=== PATIENT | female | born 1995 ===

== ENCOUNTER 2020-02-11 09:00 | Emergency (ER) | payer MEDICAID ==
[2020-02-11 10:02] LABS: Bilirubin,Urine NEG (Negative); Blood,Urine NEG (Negative); Color,Urine Yellow (Yellow); Mucus,Urine FEW /HPF; Protein,Urine <15 mg/dL mg/dL (Negative); Urobilinogen,Urine < 2.0 mg/dL (<2.0); WBC,Urine < 1.0 /HPF (0.0-6.0)
--- NOTE | 2020-02-11 10:34 | Emergency Department Report ---
ED Female HPI - General Chief complaint: Abdominal Pain Stated complaint: STOMACH PAIN Time Seen by Provider: 02/11/20 10:27 Source: patient Mode of arrival: Ambulatory Limitations: No Limitations - History of Present Illness Initial comments: Patient is a 24-year-old female who presents emergency room with complaints of pelvic pain and suprapubic abdominal pain that began a week ago. She denies any dysuria, vaginal discharge, itching, burning, nausea, vomiting, diarrhea, fever, vaginal bleeding. She denies any past medical history or allergies to medications. She states her last menstrual cycle was January 06. She states there is a possibility for . - Related Data Previous Rx's Medication Instructions Recorded Last Taken Type Fluconazole [Diflucan TAB] 200 mg PO QDAY #1 tablet 01/04/20 Unknown Rx Allergies Allergy/AdvReac Type Severity Reaction Status Date / Time No Known Allergies Allergy Unverified 01/04/20 08:49 ED Review of Systems ROS: Stated complaint: STOMACH PAIN Other details as noted in HPI Comment: All other systems reviewed and negative ED Past Medical Hx - Past Medical History Previous Medical History?: No - Surgical History Past Surgical History?: No - Social History Smoking Status: Never Smoker Substance Use Type: Alcohol - Medications Home Medications: Home Medications Medication Instructions Recorded Confirmed Last Taken Type Fluconazole [Diflucan TAB] 200 mg PO QDAY #1 tablet 01/04/20 Unknown Rx ED Physical Exam - General Limitations: No Limitations General appearance: alert, in no apparent distress - Head Head exam: Present: atraumatic, normocephalic - Eye Eye exam: Present: normal appearance - ENT ENT exam: Present: mucous membranes moist - Respiratory Respiratory exam: Present: normal lung sounds bilaterally. Absent: respiratory distress, wheezes, rales, rhonchi, stridor, chest wall tenderness, accessory muscle use, decreased breath sounds, prolonged expiratory - Cardiovascular Cardiovascular Exam: Present: regular rate, normal rhythm, normal heart sounds. Absent: systolic murmur, diastolic murmur, rubs, gallop - GI/Abdominal GI/Abdominal exam: Present: soft, normal bowel sounds. Absent: distended, tenderness, guarding, rebound, rigid - Neurological Exam Neurological exam: Present: alert, oriented X3 - Psychiatric Psychiatric exam: Present: normal affect, normal mood - Skin Skin exam: Present: warm, dry, intact ED Course Vital Signs 02/11/20 09:08 Temperature 98.1 F Pulse Rate 55 L Respiratory 16 Rate Blood Pressure 106/57 O2 Sat by Pulse 100 Oximetry ED Medical Decision Making - Lab Data Result diagrams: 02/11/20 10:49 02/11/20 10:49 Lab Results 02/11/20 02/11/20 02/11/20 Range/Units 09:19 10:49 10:49 WBC 6.6 (4.5-11.0) K/mm3 RBC 4.26 (3.65-5.03) M/mm3 Hgb 13.1 (10.1-14.3) gm/dl Hct 37.9 (30.3-42.9) % MCV 89 (79-97) fl MCH 31 (28-32) pg MCHC 35 H (30-34) % RDW 12.8 L (13.2-15.2) % Plt Count 203 (140-440) K/mm3 Lymph % (Auto) 20.3 (13.4-35.0) % Nolan % (Auto) 7.4 H (0.0-7.3) % Eos % (Auto) 0.4 (0.0-4.3) % Baso % (Auto) 0.6 (0.0-1.8) % Lymph # 1.3 (1.2-5.4) K/mm3 Nolan # 0.5 (0.0-0.8) K/mm3 Eos # 0.0 (0.0-0.4) K/mm3 Baso # 0.0 (0.0-0.1) K/mm3 Seg Neutrophils % 71.3 H (40.0-70.0) % Seg Neutrophils # 4.7 (1.8-7.7) K/mm3 Sodium 136 L (137-145) mmol/L Potassium 4.3 (3.6-5.0) mmol/L Chloride 101.8 (98-107) mmol/L Carbon Dioxide 21 L (22-30) mmol/L Anion Gap 18 mmol/L BUN 8 (7-17) mg/dL Creatinine 0.5 L (0.6-1.2) mg/dL Estimated GFR > 60 ml/min BUN/Creatinine Ratio 16 % Glucose 87 (65-100) mg/dL Calcium 9.4 (8.4-10.2) mg/dL Total Bilirubin 0.90 (0.1-1.2) mg/dL AST 12 (5-40) units/L ALT 10 (7-56) units/L Alkaline Phosphatase 65 (35-129) units/L Total Protein 7.1 (6.3-8.2) g/dL Albumin 4.5 (3.9-5) g/dL Albumin/Globulin Ratio 1.7 % HCG, Quant (0-4) mIU/mL Urine Color Yellow (Yellow) Urine Turbidity Clear (Clear) Urine pH 5.0 (5.0-7.0) Ur Specific [place] 1.010 (1.003-1.030) Urine Protein <15 mg/dl (Negative) mg/dL Urine Glucose (UA) Neg (Negative) mg/dL Urine Ketones Neg (Negative) mg/dL Urine Blood Neg (Negative) Urine Nitrite Neg (Negative) Urine Bilirubin Neg (Negative) Urine Urobilinogen < 2.0 (<2.0) mg/dL Ur Leukocyte Esterase Neg (Negative) Urine WBC (Auto) < 1.0 (0.0-6.0) /HPF Urine RBC (Auto) 1.0 (0.0-6.0) /HPF U Epithel Cells (Auto) 5.0 (0-13.0) /HPF Urine Mucus Few /HPF Urine HCG, Qual (Negative) 02/11/20 02/11/20 Range/Units 10:49 Unknown WBC (4.5-11.0) K/mm3 RBC (3.65-5.03) M/mm3 Hgb (10.1-14.3) gm/dl Hct (30.3-42.9) % MCV (79-97) fl MCH (28-32) pg MCHC (30-34) % RDW (13.2-15.2) % Plt Count (140-440) K/mm3 Lymph % (Auto) (13.4-35.0) % Nolan % (Auto) (0.0-7.3) % Eos % (Auto) (0.0-4.3) % Baso % (Auto) (0.0-1.8) % Lymph # (1.2-5.4) K/mm3 Nolan # (0.0-0.8) K/mm3 Eos # (0.0-0.4) K/mm3 Baso # (0.0-0.1) K/mm3 Seg Neutrophils % (40.0-70.0) % Seg Neutrophils # (1.8-7.7) K/mm3 Sodium (137-145) mmol/L Potassium (3.6-5.0) mmol/L Chloride (98-107) mmol/L Carbon Dioxide (22-30) mmol/L Anion Gap mmol/L BUN (7-17) mg/dL Creatinine (0.6-1.2) mg/dL Estimated GFR ml/min BUN/Creatinine Ratio % Glucose (65-100) mg/dL Calcium (8.4-10.2) mg/dL Total Bilirubin (0.1-1.2) mg/dL AST (5-40) units/L ALT (7-56) units/L Alkaline Phosphatase (35-129) units/L Total Protein (6.3-8.2) g/dL Albumin (3.9-5) g/dL Albumin/Globulin Ratio % HCG, Quant 4256 H (0-4) mIU/mL Urine Color (Yellow) Urine Turbidity (Clear) Urine pH (5.0-7.0) Ur Specific [place] (1.003-1.030) Urine Protein (Negative) mg/dL Urine Glucose (UA) (Negative) mg/dL Urine Ketones (Negative) mg/dL Urine Blood (Negative) Urine Nitrite (Negative) Urine Bilirubin (Negative) Urine Urobilinogen (<2.0) mg/dL Ur Leukocyte Esterase (Negative) Urine WBC (Auto) (0.0-6.0) /HPF Urine RBC (Auto) (0.0-6.0) /HPF U Epithel Cells (Auto) (0-13.0) /HPF Urine Mucus /HPF Urine HCG, Qual Positive A (Negative) - Radiology Data Radiology results: report reviewed ULTRASOUND OBSTETRIC INDICATION / CLINICAL INFORMATION: , abd pain, pelvic pain. Clinical Gestational Age (GA): 5 weeks 0 days TECHNIQUE: Transabdominal. COMPARISON: None available. FINDINGS: GESTATIONAL SAC: Early intrauterine with Tiny gestational sac measuring 5 mm in length. YOLK SAC: No discernible yolk sac is noted. ADNEXA: Right ovarian cyst is noted measuring 2.1 x 1.8 x 1.9 cm. The left ovary is not visualized on this exam. FREE FLUID: None. ADDITIONAL FINDINGS: None. IMPRESSION: 1. Early intrauterine measuring 5 weeks 2 days for gestational age. Follow-up ultrasound and monitoring of hCG is recommended. 2. Right corpus luteal cyst. Signer Name: Sepedy Ruiz MD Signed: 02/11/2020 1:02 PM Workstation Name: [id number] Transcribed By: Dictated By: SPEEDY RUIZ Electronically Authenticated By: SPEEDY RUIZ Signed Date/Time: 02/11/20 1302 DD/ 1249 TD/TT: - Medical Decision Making Patient is a 24-year-old female who presents emergency room with complaints of pelvic pain and suprapubic abdominal pain that began a week ago. She denies any dysuria, vaginal discharge, itching, burning, nausea, vomiting, diarrhea, fever, vaginal bleeding. She denies any past medical history or allergies to medications. She states her last menstrual cycle was January 06. She states there is a possibility for . VSS. No abdominal tenderness on exam, no guarding, no rebound, no rigidity, no peritoneal signs, normal bowel sounds. UA is within normal limits. Urine is positive. Given that patient is having abdominal pain and pelvic pain with a newly positive , ultrasound and labs ordered. Labs are stable. hCG quant is 4256. OB US: 1. Early intrauterine measuring 5 weeks 2 days for gestational age. Follow-up ultrasound and monitoring of hCG is recommended. 2. Right corpus luteal cyst. Patient given Tylenol in the emergency department and symptoms improved. Patient was tolerating p.o. intake while in the emergency department. Discussed all results with patient and answered questions. Patient will be referred [facility] for close follow-up. Advised patient may take Tylenol as needed for discomfort. Increase your water intake. Please take a vitamin [id number]. Follow-up with [facility], you will need close follow-up. Return to emergency room for any new or worsening symptoms. - Differential Diagnosis IUP, ectopic, ovarian cyst, fibroids, endometriosis, UTI, adenomyosis Critical care attestation.: If time is entered above; I have spent that time in minutes in the direct care of this critically ill patient, excluding procedure time. ED Disposition Clinical Impression: Pelvic pain Abdominal pain Qualifiers: Abdominal location: lower abdomen, unspecified Qualified Code(s): R10.30 - Lower abdominal pain, unspecified Qualifiers: Weeks of gestation: less than 8 weeks Qualified Code(s): Z3A.01 - Less than 8 weeks gestation of Ovarian cyst Qualifiers: Laterality: right Qualified Code(s): N83.201 - Unspecified ovarian cyst, right side Disposition: TO HOME OR SELFCARE Is pt being admited?: No Does the pt Need Aspirin: No Condition: Stable Instructions: (ED), Ovarian Cyst (ED) Additional Instructions: may take Tylenol as needed for discomfort. Increase your water intake. Please take a vitamin [id number]. Follow-up with [facility], you will need close follow-up. Return to emergency room for any new or worsening symptoms. Referrals: [facility] [Provider Group] - 2-3 Days [facility] [Provider Group] - 2-3 Days [facility] [Provider Group] - 2-3 Days [facility] [Provider Group] - 2-3 Days Time of Disposition: 13:16 Print Language: ALBANIAN
[2020-02-11 10:35] LABS: HCG Qualitative,Urine Positive (Negative)
[2020-02-11] MEDS ORDERED: ACETAMINOPHEN 325 MG TAB PO ONE (10:44)
[2020-02-11 10:50] VITALS: BP 106/57
[2020-02-11 11:15] LABS: Basophils % (Auto) 0.6 % (0.0-1.8); Eosinophils % (Auto) 0.4 % (0.0-4.3); Hematocrit 37.9 % (30.3-42.9); Hemoglobin 13.1 gm/dl (10.1-14.3); Lymphocytes # (Auto) 1.3 K/mm3 (1.2-5.4); Lymphocytes % (Auto) 20.3 % (13.4-35.0); Mean Corpuscular HGB Conc 35 % (30-34); Mean Corpuscular Volume 89 fl (79-97); Monocytes # (Auto) 0.5 K/mm3 (0.0-0.8); Monocytes % (Auto) 7.4 % (0.0-7.3); Platelet Count 203 K/mm3 (140-440); Red Blood Count 4.26 M/mm3 (3.65-5.03); Red Cell Distribution Width 12.8 % (13.2-15.2)
[2020-02-11 11:28] LABS: Alanine Aminotransferase 10 units/L (7-56); Albumin 4.5 g/dL (3.9-5); Blood Urea Nitrogen 8 mg/dL (7-17); Calcium 9.4 mg/dL (8.4-10.2); Hemolysis Index 5
[2020-02-11 11:29] LABS: BUN/Creatinine Ratio 16
--- NOTE | 2020-02-11 13:07 | Ultrasound Report ---
ULTRASOUND OBSTETRIC INDICATION / CLINICAL INFORMATION: , abd pain, pelvic pain. Clinical Gestational Age (GA): 5 weeks 0 days TECHNIQUE: Transabdominal. COMPARISON: None available. FINDINGS: GESTATIONAL SAC: Early intrauterine with Tiny gestational sac measuring 5 mm in length. YOLK SAC: No discernible yolk sac is noted. ADNEXA: Right ovarian cyst is noted measuring 2.1 x 1.8 x 1.9 cm. The left ovary is not visualized on this exam. FREE FLUID: None. ADDITIONAL FINDINGS: None. IMPRESSION: 1. Early intrauterine measuring 5 weeks 2 days for gestational age. Follow-up ultrasound an d monitoring of hCG is recommended. 2. Right corpus luteal cyst. Signer Name: Rodolfo Loving MD Signed: 02/11/2020 1:02 PM Workstation Name: [id number]
== END 2020-02-11 13:30 | disposition home or self-care (01) ==
LOC: ED 09:00
DX: O34.81 Maternal care for other abnormalities of pelvic organs, first trimester (principal); O26.891 Other specified pregnancy related conditions, first trimester; N83.209 Unspecified ovarian cyst, unspecified side; R10.2 Pelvic and perineal pain; Z3A.01 Less than 8 weeks gestation of pregnancy; Z79.899 Other long term (current) drug therapy
CPT/HCPCS: 36415; 76801; 80053; 81001; 81025; 84702; 85025

== ENCOUNTER 2021-01-02 09:37 | Emergency (ER) | payer MEDICAID ==
[2021-01-02 09:44] VITALS: BP 144/83
--- NOTE | 2021-01-02 10:40 | XRay Report ---
CHEST 2 VIEWS INDICATION: CP. COMPARISON: None. FINDINGS: Support devices: None. Heart: Within normal limits. Lungs/Pleura: No acute air space or interstitial disease. No significant pleural effusion. IMPRESSION: No acute findings. Signer Name: Richar Duenas MD Signed: 01/02/2021 10:36 AM Workstation Name: [id number]
--- NOTE | 2021-01-02 11:44 | Emergency Department Report ---
ED General Adult HPI - General Chief complaint: Chest Pain Stated complaint: CHEST PAIN /SHAKING/HEADACHES Source: patient Mode of arrival: Ambulatory Limitations: No Limitations - History of Present Illness Initial comments: 25-year-old female patient presents to the emergency department with complaints of chest pain, dizziness, generalized weakness, nausea, and vomiting for 3 days. No known sick contacts. No current steroid antibiotic use. No recent travel. Last menstrual cycle was last week. Denies fever, chills, cough, hematemesis, abdominal pain, shortness of breath, wheezing. Denies all other complaints at this time. - Related Data Previous Rx's Medication Instructions Recorded Last Taken Type Fluconazole [Diflucan TAB] 200 mg PO QDAY #1 tablet 01/04/20 Unknown Rx Allergies Allergy/AdvReac Type Severity Reaction Status Date / Time No Known Allergies Allergy Verified 01/02/21 09:39 ED Review of Systems ROS: Stated complaint: CHEST PAIN /SHAKING/HEADACHES Other details as noted in HPI Other: GENERAL: Negative for fever, chills, weight change, anorexia, fatigue. ENT: Negative for ear pain, difficulty hearing, sore throat, nasal congestion, epistaxis. CARDIOVASCULAR: Positive for chest pain. PULMONARY: Negative for cough, dyspnea, wheezing, orthopnea, cyanosis. GASTROINTESTINAL: Positive for nausea and vomiting. MUSCULOSKELETAL: Negative for joint pain, joint swelling, myalgias, back pain, neck pain. NEUROLOGICAL: Positive for dizziness. INTEGUMENTARY: Negative for erythema, rash, diaphoresis, laceration, ecchymosis. HEMATOLOGICAL: Negative for hemoptysis, hematemesis, hematochezia, hematuria. PSYCHIATRIC: Negative for hallucinations, suicidal ideation, homicidal ideation, anxiety, depression. ED Past Medical Hx - Past Medical History Previous Medical History?: No - Surgical History Past Surgical History?: No - Social History Smoking Status: Never Smoker Substance Use Type: Alcohol - Medications Home Medications: Home Medications Medication Instructions Recorded Confirmed Last Taken Type Fluconazole [Diflucan TAB] 200 mg PO QDAY #1 tablet 01/04/20 Unknown Rx ED Physical Exam - General Limitations: No Limitations - Other Other exam information: General: Awake and alert. No acute distress. Head: Atraumatic, normocephalic. Eyes: EOMI. Pupils are equal and round. Normal sclera and conjunctiva. ENT: Oral mucosa is moist. Normal pharyngeal exam. Neck: Supple. No lymphadenopathy. Pulmonary: No respiratory distress. Clear to auscultation bilaterally. Cardiac: Regular rate and rhythm. Pulses are palpable and equal bilaterally. No lower extremity cyanosis or edema. Skin: Warm and dry. No rashes. Abdomen: Soft, non-tender, non-protuberant. No guarding, rigidity, or rebound. Bowel sounds are normal. No organomegaly or masses noted. Back: Normal alignment. No CVA tenderness. Extremities: Symmetrical. Full range of motion intact. Neurological: Alert and oriented, appropriately interactive, no focal deficits. Psych: Cooperative. Appropriate mood and affect. Speech is evenly metered. Thoughts are logically construed. ED Course Vital Signs 01/02/21 09:44 Temperature 98.5 F Pulse Rate 61 Respiratory 18 Rate Blood Pressure 144/83 O2 Sat by Pulse 100 Oximetry ED Medical Decision Making - Medical Decision Making Patient eloped from the emergency department prior to completion of diagnostic evaluation. Critical care attestation.: If time is entered above; I have spent that time in minutes in the direct care of this critically ill patient, excluding procedure time. ED Disposition Clinical Impression: Eloped from emergency department Disposition: DC-01 TO HOME OR SELFCARE Is pt being admited?: No Does the pt Need Aspirin: No Condition: Undetermined Time of Disposition: 11:43
--- NOTE | 2021-01-02 12:39 | Electrocardiograph Report ---
[facility] Test Date: 2021-01-02 Test Time: 09:47:44 Pat Name: JOHN IVEY Department: Room: Gender: F [employer] Professor: JEOVANNY : 1995 Requested By: ED DOC Order Number: [id number] Reading MD: Singh Tobin Measurements Intervals [place] Rate: 57 P: -22 CT: 191 QRS: -28 QRSD: 95 T: 39 QT: 455 QTc: 444 Interpretive Statements Sinus bradycardia Low voltage, precordial leads Left axis deviation No previous ECG available for comparison Electronically Signed On 01-02-2021 12:39:20 EDT by Singh Tobin
== END 2021-01-02 11:44 | disposition left against medical advice (07) ==
LOC: ED 09:37
DX: R07.89 Other chest pain (principal); R42 Dizziness and giddiness; R53.1 Weakness; Z53.21 Procedure and treatment not carried out due to patient leaving prior to being seen by health care provider
CPT/HCPCS: 71046; 93005